=== PATIENT | male | born 1950 | race Caucasian/White ===

== ENCOUNTER 2021-11-03 05:48 | Inpatient (IN) ==
[2021-10-29 15:49] LABS: Bilirubin,Urine Negative (Negative); Blood, Urine Negative (Negative); Glucose,Urine (UA) Negative (Negative); Ketones,Urine Negative (Negative); Mucus,Urine Occasional /LPF (Occasional); Nitrite,Urine Negative (Negative); Protein,Urine Negative (Negative); RBC,Urine <1 /HPF (0-4); Squamous Epithelial Cell,Urine Occasional /HPF (0-10); Urine Appearance Clear (Clear); Urine Color Yellow (Yellow); Urine pH 5.5 (4.5-8.0)
[2021-10-29 15:50] LABS: Urine Urobilinogen 0.2 eU/dL (<2.0)
[2021-10-29 15:51] LABS: Basophils # 0.1 10*3/uL (0.0-0.2); Basophils % 0.7 % (0.0-0.8); Eosinophils # 0.1 10*3/uL (0.0-0.87); Eosinophils % 1.7 % (0.00-10.9); Hematocrit 35.9 VOL% (42.0-52.0); Hemoglobin 10.9 GM/DL (14.0-18.0); Immature Granulocytes % 0.6 %; Immature Granulocytes Absolute 0.04 #; Lymphocytes # 1.5 10*3/uL (1.4-4.0); Lymphocytes % 21.4 % (21.2-54.2); Mean Corpuscular HGB Conc 30.4 GM/DL (32-36); Mean Corpuscular Volume 75.4 FL (87-102); Monocytes # 0.9 10*3/uL (0.11-0.8); Monocytes % 12.2 % (1.7-12.7); Neutrophils % 63.4 % (38.7-73.9); Platelet Count 340 T/CUMM (130-400); Red Blood Count 4.76 MC/CUMM (3.8-5.5); Red Cell Distribution Width 17.8 % (9.3-17.3); White Blood Count 7.1 T/CUMM (4-12)
[2021-10-29 16:09] LABS: PT Patient Result 10.9 SECS (10.5-12.0); Partial Thromboplastin Time 26.6 SECS (23.8-32.1)
[2021-10-29 16:16] LABS: Albumin 4.3 G/DL (3.4-5.0); Bilirubin,Total 0.4 MG/DL (0.20-1.00); Potassium 4.3 MMOL/L (3.5-5.1); Total Protein 7.7 G/DL (6.4-8.2)
[2021-11-03] MEDS ORDERED: VANCOMYCIN INJ 1,000 MG in SODIUM CHLORIDE 0.9% 250 ML IV ONE (06:00)
[2021-11-03] MEDS ORDERED: ROPIVACAINE 0.5% 30 ML VIAL ONE (06:17)
[2021-11-03] MEDS ORDERED: DEXAMETHASONE 4 MG/1 ML VIAL ONE ×2 (06:17→07:52)
[2021-11-03] MEDS ORDERED: LIDOCAINE 1% 5 ML VIAL ONE (06:17)
[2021-11-03] MEDS ORDERED: fentaNYL 100 MCG/2 ML VIAL ONE (06:22)
[2021-11-03] MEDS ORDERED: MIDAZOLAM 2 MG/2 ML VIAL ONE (06:22)
[2021-11-03] MEDS ORDERED: propofoL 200 MG/20 ML VIAL IV ONE (06:22)
[2021-11-03] MEDS ORDERED: LIDOCAINE 2% 5 ML VIAL ONE (06:22)
[2021-11-03] MEDS ORDERED: DEXMEDETOMIDINE 200 MCG/2 ML VIAL ONE (06:39)
[2021-11-03] MEDS ORDERED: TEMAZEPAM 7.5 MG CAPSULE PO PRN (07:24)
[2021-11-03] MEDS ORDERED: diphenhydrAMINE CAP 25 MG CAPSULE PO PRN (07:24)
[2021-11-03] MEDS ORDERED: ONDANSETRON 4 MG/2 ML VIAL IV PRN ×2 (07:24→09:19)
[2021-11-03] MEDS ORDERED: PROMETHAZINE 25 MG/1 ML VIAL IM PRN (07:24)
[2021-11-03] MEDS ORDERED: LACTULOSE 20 GM/30 ML UDCUP PO PRN (07:24)
[2021-11-03] MEDS ORDERED: MORPHINE 2 MG/1 ML SYRINGE IV PRN ×2 (07:24→08:32)
[2021-11-03] MEDS ORDERED: BISACODYL 10 MG SUPP RECTAL PRN (07:24)
[2021-11-03] MEDS ORDERED: MAGNESIUM HYDROXIDE SUSP 30 ML UDCUP PO PRN (07:24)
[2021-11-03] MEDS ORDERED: LORATADINE 10 MG TABLET PO PRN (07:27)
[2021-11-03] MEDS ORDERED: DEXTROSE 10% 250 ML BAG IV PRN (07:27)
[2021-11-03] MEDS ORDERED: GLUCAGON 1 MG VIAL IM PRN (07:27)
[2021-11-03] MEDS ORDERED: FLUTICASONE 50 MCG NASAL SPRAY 16 GM BOTTLE BOTH NARES PRN (07:27)
[2021-11-03] MEDS ORDERED: traMADol 50 MG TABLET PO PRN (07:27)
[2021-11-03] MEDS ORDERED: ACETAMINOPHEN INJ 1,000 MG/100 ML VIAL IV ONE (07:52)
[2021-11-03] MEDS ORDERED: ONDANSETRON 4 MG/2 ML VIAL ONE (07:52)
[2021-11-03] MEDS ORDERED: ROCURONIUM 50 MG/5 ML VIAL IV ONE (07:52)
[2021-11-03] MEDS ORDERED: SEVOFLURANE 1 UNIT/15 MINUTE INH ONE ×4 (07:55→09:09)
[2021-11-03] MEDS ORDERED: GLYCOPYRROLATE 0.4 MG/2 ML VIAL ONE (07:57)
[2021-11-03] MEDS ORDERED: NEOSTIGMINE 10 MG/10 ML VIAL ONE (07:58)
[2021-11-03] MEDS ORDERED: LACTATED RINGERS 1,000 ML IV ONE (08:32)
[2021-11-03] MEDS ORDERED: PHENYLEPHRINE 1 MG/10 ML SYRINGE IV ONE (08:33)
[2021-11-03] MEDS ORDERED: ePHEDrine 50 MG/ML VIAL ONE (08:38)
[2021-11-03] MEDS ORDERED: KETOROLAC 30 MG/1 ML VIAL ONE (08:43)
[2021-11-03] MEDS ORDERED: NON-FORMULARY MEDICATION (Krill-Omega-3-Dha-Epa-Lipids [Krill Oil] 300-90-24-50 mg Capsule PO SCH (09:00)
[2021-11-03] MEDS ORDERED: HYDROmorphone 1 MG/1 ML SYRINGE IV PRN (09:19)
[2021-11-03 09:23] LABS: Mucus,Urine Occasional /LPF (Occasional); Protein,Urine Negative (Negative); RBC,Urine 2 /HPF (0-4); Squamous Epithelial Cell,Urine Occasional /HPF (0-10); Urine Appearance Clear (Clear); Urine Color Yellow (Yellow); Urine Specific Gravity 1.025 (1.001-1.035); Urine pH 5.5 (4.5-8.0)
[2021-11-03 09:24] LABS: Bilirubin,Urine Negative (Negative); Blood, Urine Negative (Negative); Glucose,Urine (UA) Negative (Negative); Ketones,Urine Negative (Negative); Nitrite,Urine Negative (Negative); Urine Urobilinogen 0.2 eU/dL (<2.0)
[2021-11-03] MEDS: INSULIN REGULAR 100 UNIT/ML SUBCUT SCH ×4 (10:29→21:27)
[2021-11-03] MEDS: LACTATED RINGERS 1,000 ML IV SCH (10:30)
[2021-11-03] MEDS: MULTIVITAMIN (CENTRUM) TABLET PO SCH (10:30)
[2021-11-03] MEDS: CLOPIDOGREL 75 MG TABLET PO SCH (11:48)
[2021-11-03] MEDS: ASPIRIN 325 MG TABLET PO SCH (11:48)
[2021-11-03] MEDS: ceFAZolin 2,000 MG/50 ML DUPLEX IV SCH ×2 (14:33→21:27)
[2021-11-03] MEDS ORDERED: TUBERCULIN SKIN TEST 0.1 ML SYRINGE INTRADERM ONE (15:53)
[2021-11-03] MEDS: metFORMIN 500 MG TABLET PO SCH (16:56)
[2021-11-03] MEDS: glipiZIDE 10 MG TABLET PO SCH (16:56)
[2021-11-03] MEDS: DORZOLAMIDE/TIMOLOL OPH SOLN 10 ML BOTTLE BOTH EYES SCH (21:26)
[2021-11-03] MEDS: ROSUVASTATIN 20 MG TABLET PO SCH (21:26)
[2021-11-03] MEDS: DOCUSATE SODIUM 100 MG CAPSULE PO SCH (21:26)
[2021-11-03] MEDS: FONDAPARINUX 2.5 MG/0.5 ML SYRINGE SUBCUT SCH (21:27)
[2021-11-03] MEDS: LATANOPROST 0.005% OPH SOLN 2.5 ML BOTTLE BOTH EYES SCH (21:30)
[2021-11-04] MEDS: LACTATED RINGERS 1,000 ML IV SCH (04:38)
[2021-11-04 04:40] LABS: Basophils % 0.2 % (0.0-0.8); Hemoglobin 8.4 GM/DL (14.0-18.0); Immature Granulocytes % 0.3 %; Immature Granulocytes Absolute 0.04 #; Lymphocytes # 1.2 10*3/uL (1.4-4.0); Lymphocytes % 9.2 % (21.2-54.2); Mean Corpuscular Volume 75.9 FL (87-102); Mean Platelet Volume 9.8 FL (9.6-12.0); Monocytes # 1.8 10*3/uL (0.11-0.8); Monocytes % 13.9 % (1.7-12.7); Neutrophils % 76.4 % (38.7-73.9); Platelet Count 275 T/CUMM (130-400); Red Blood Count 3.69 MC/CUMM (3.8-5.5); Red Cell Distribution Width 17.2 % (9.3-17.3); White Blood Count 12.7 T/CUMM (4-12)
[2021-11-04 05:04] LABS: Calcium 8.5 MG/DL (8.5-10.1); Osmolality,Calculated 273.1 MOS/KG (273-304); Potassium 3.9 MMOL/L (3.5-5.1)
[2021-11-04] MEDS: DOCUSATE SODIUM 100 MG CAPSULE PO SCH ×2 (09:06→20:51)
[2021-11-04] MEDS: COENZYME Q10 100 MG CAPSULE PO SCH (09:07)
[2021-11-04] MEDS: CLOPIDOGREL 75 MG TABLET PO SCH (09:07)
[2021-11-04] MEDS: ASPIRIN 325 MG TABLET PO SCH (09:07)
[2021-11-04] MEDS: metFORMIN 500 MG TABLET PO SCH ×2 (09:08→16:42)
[2021-11-04] MEDS: glipiZIDE 10 MG TABLET PO SCH ×2 (09:08→16:42)
[2021-11-04] MEDS: LOSARTAN/HCTZ 50-12.5 MG TABLET PO SCH (09:08)
[2021-11-04] MEDS: ACETAMINOPHEN 325 MG TABLET PO PRN ×2 (09:15→18:31)
[2021-11-04] MEDS: DORZOLAMIDE/TIMOLOL OPH SOLN 10 ML BOTTLE BOTH EYES SCH ×2 (09:15→20:52)
[2021-11-04] MEDS: INSULIN REGULAR 100 UNIT/ML SUBCUT SCH ×4 (09:16→21:20)
[2021-11-04] MEDS: MULTIVITAMIN (CENTRUM) TABLET PO SCH (12:00)
[2021-11-04] MEDS: ROSUVASTATIN 20 MG TABLET PO SCH (20:50)
[2021-11-04] MEDS: FONDAPARINUX 2.5 MG/0.5 ML SYRINGE SUBCUT SCH (20:51)
[2021-11-04] MEDS: LATANOPROST 0.005% OPH SOLN 2.5 ML BOTTLE BOTH EYES SCH (20:52)
[2021-11-05 05:09] LABS: Basophils # 0.1 10*3/uL (0.0-0.2); Basophils % 0.6 % (0.0-0.8); Eosinophils % 0.4 % (0.00-10.9); Hematocrit 26.7 VOL% (42.0-52.0); Hemoglobin 8.1 GM/DL (14.0-18.0); Immature Granulocytes % 0.3 %; Immature Granulocytes Absolute 0.03 #; Lymphocytes # 1.3 10*3/uL (1.4-4.0); Mean Corpuscular HGB Conc 30.3 GM/DL (32-36); Mean Corpuscular Volume 74.6 FL (87-102); Monocytes # 1.7 10*3/uL (0.11-0.8); Monocytes % 16.5 % (1.7-12.7); Neutrophils % 69.2 % (38.7-73.9); Platelet Count 262 T/CUMM (130-400); Red Blood Count 3.58 MC/CUMM (3.8-5.5); Red Cell Distribution Width 17.5 % (9.3-17.3); White Blood Count 10.3 T/CUMM (4-12)
[2021-11-05 05:45] LABS: Polychromasia Slight
[2021-11-05 08:29] LABS: Band Neutrophils 3 % (0-10); Eosinophils 1 % (0-10); Lymphocytes 15 % (20-55); Platelet Estimate Normal; Total Cells Counted 100
[2021-11-05 08:30] LABS: Anisocytosis Slight
[2021-11-05] MEDS: ASPIRIN 325 MG TABLET PO SCH (08:59)
[2021-11-05] MEDS: glipiZIDE 10 MG TABLET PO SCH (08:59)
[2021-11-05] MEDS: DOCUSATE SODIUM 100 MG CAPSULE PO SCH (09:00)
[2021-11-05] MEDS: CLOPIDOGREL 75 MG TABLET PO SCH (09:00)
[2021-11-05] MEDS: COENZYME Q10 100 MG CAPSULE PO SCH (09:00)
[2021-11-05] MEDS: metFORMIN 500 MG TABLET PO SCH (09:00)
[2021-11-05] MEDS ORDERED: MULTIVITAMIN (INTRINSIC) CAPSULE PO SCH (09:00)
[2021-11-05] MEDS: MULTIVITAMIN (CENTRUM) TABLET PO SCH (09:00)
[2021-11-05] MEDS: LOSARTAN/HCTZ 50-12.5 MG TABLET PO SCH (09:01)
[2021-11-05] MEDS: DORZOLAMIDE/TIMOLOL OPH SOLN 10 ML BOTTLE BOTH EYES SCH (09:03)
[2021-11-05] MEDS: ACETAMINOPHEN 325 MG TABLET PO PRN (09:03)
[2021-11-05] MEDS: INSULIN REGULAR 100 UNIT/ML SUBCUT SCH (10:49)
[2021-11-05 11:45] VITALS: BP 119/55
== END 2021-11-05 12:58 | disposition swing bed (61) | DRG 470 ==
LOC: N.SDSINP 05:48 → N.3E 10:19
PROVIDERS: ADMIT Orthopaedic Surgery; ATTEND Orthopaedic Surgery